=== PATIENT | male | born 1985 | race Caucasian/White ===

== ENCOUNTER → 2019-07-29 | Outpatient (CLI) | payer BC ==
--- NOTE | 2019-07-29 08:52 | US ---
EXAMINATION TYPE: US abdomen complete DATE OF EXAM: 07/29/2019 COMPARISON: NONE CLINICAL HISTORY: R94.5 Abd Liver Function. Just started taking antihypertensive medications EXAM MEASUREMENTS: Liver Length: 15.8 cm Gallbladder Wall: 0.2 cm CBD: 0.4 cm Spleen: 10.8 cm Right Kidney: 12.4 x 6.0 x 5.0 cm Left Kidney: 12.2 x 5.6 x 5.7 cm Pancreas: hyperechoic and tail obscured by overlying bowel gas Liver: hyperechoic to right renal cortex suggests fatty liver; focal fatting sparing area noted near gallbladder Gallbladder: wnl Evidence for sonographic Rubio's sign: no CBD: wnl Spleen: wnl Right Kidney: mid exophytic cortical cyst =0.7 x 0.6 x 0.5cm Left Kidney: mid cortical cyst = 0.7 x 0.6 x 0.5cm Upper IVC: wnl Abd Aorta: wnl IMPRESSION: 1. Bilateral tiny cortical renal cysts.
== END | disposition home or self-care (01) ==
LOC: RADUSWWP 07:39
PROVIDERS: ATTEND Family Medicine
DX: N28.1 Cyst of kidney, acquired (principal)
CPT/HCPCS: 76700